=== PATIENT | female | born 1950 | race Caucasian/White ===

== ENCOUNTER 2017-11-23 13:16 | Outpatient (CLI) | payer MEDICARE | END 2017-11-23 13:17 | disposition home or self-care (01) | LOC: BICMRI 13:16 | PROVIDERS: ATTEND Neurological Surgery | DX: M47.22 Other spondylosis with radiculopathy, cervical region (principal); M43.12 Spondylolisthesis, cervical region; Z98.890 Other specified postprocedural states | CPT/HCPCS: 72040; 72141 ==

== ENCOUNTER 2018-12-06 20:43 | Observation (INO) | payer MEDICARE ==
[~2018-12-06 20:43] MED LIST: ISOVUE-370 76%-LOCM 1 ML ONE
[2018-12-06 21:49] LABS: Mean Corpuscular HGB CONC 34.2 g/dL (32.0-36.0); Mean Corpuscular Hemoglobin 29.7 pg (27.0-31.0); Mean Corpuscular Volume 86.8 fL (78.0-98.0); Mean Platelet Volume 6.7 fL (7.4-10.4); Platelet Count 383 thou/uL (130-400); RBC Distribution Width 12.2 % (11.5-14.5); Red Blood Cell (RBC) Count 5.05 mill/uL (4.20-5.40); White Blood Cell (WBC) Count 24.1 thou/uL (4.8-10.8)
[2018-12-06 22:08] LABS: Band 2 % (5-11); Eosinophils 2 % (0-10); Lymphocytes 9 % (21-51); MDiff Complete? YES; Monocytes 1 % (0-10); Neutrophil 86 % (42-75)
[2018-12-06] MEDS ORDERED: Morphine 4 MG/ML VIAL ONE (22:08)
[2018-12-06 22:09] LABS: ALT (SGPT) 11 U/L (8-55); AST (SGOT) 14 U/L (5-34); Albumin 4.2 g/dL (3.4-4.8); Alkaline Phosphatase 92 U/L (40-150); Anion Gap 18 mmol/L (10-20); BUN (Urea Nitrogen) 33 mg/dL (9.8-20.1); Bilirubin, Total 0.9 mg/dL (0.2-1.2); Calc. Creatinine Clearance 0 mL/min (70-130); Calcium 9.6 mg/dL (7.8-10.44); Carbon Dioxide 20 mmol/L (23-31); Chloride 105 mmol/L (98-107); Estimated GFR-MDRD 32; Globulin 2.8 g/dL (2.4-3.5); Glucose 130 mg/dL (80-115); Lipase 27 U/L (8-78); Potassium 3.7 mmol/L (3.5-5.1); Sodium 139 mmol/L (136-145)
--- NOTE | 2018-12-06 22:12 | ULT ---
Right upper quadrant ultrasound. HISTORY: Epigastric pain right upper quadrant pain. Multiple longitudinal and transverse images of the right upper quadrant of the abdomen is obtained us ing multi hertz curvilinear transducer. Real-time, color flow and spectral waveform Doppler analysis used to evaluate the right upper quadrant of the abdomen. The liver is unremarkable. No definite evidence of hepatic parenchymal masses seen. No evidence of in trahepatic biliary dilatation seen. Normal hepatopedal flow seen. The common bile ducts of normal size measuring 2.1 mm. No evidence of gallstone seen. Visualized portion of the pancreas is unremarkable. The right kidneys unremarkable pole to pole measurement measuring 10.8 cm. IMPRESSION: Normal right upper quadrant ultrasound.
[2018-12-06] MEDS ORDERED: Dicyclomine 20 MG TAB ONE (22:15)
--- NOTE | 2018-12-06 22:26 | RAD ---
AP view chest. HISTORY: Nausea and vomiting. AP view chest obtained. The lungs are well aerated. No evidence of active intrathoracic disease seen. No evidence of effusions, pneumonia or pneumothorax seen. IMPRESSION: Unremarkable AP view chest.
[2018-12-06] MEDS ORDERED: Ondansetron PF 4 MG/2 ML Vial ONE (22:36)
--- NOTE | 2018-12-07 00:03 | CT ---
Contrast-enhanced images abdomen and pelvis. HISTORY: Abdominal pain. The lung bases are unremarkable. No evidence of free intraperitoneal air seen. A small amount of free intraperitoneal fluid seen. The liver and spleen are unremarkable. The pancreas is unremarkable. The gallbladder is unremarkable. There is abnormal thickening and dilatation of the duodenum and jejunum. There is equalization of devika e of the small bowel contents in the jejunum. There is also diffuse thickening and enhancement involving the more distal ileal loops. Findings concerning for enteritis. The colon is decompressed but also demonstrates some diffuse mucosal thickening and enhancement. Find ings may represent changes of colitis. Adrenal glands unremarkable. The kidneys demonstrate no evidence of obstruction. IMPRESSION: 1: Small amount of free intraperitoneal fluid. 2: Extensive loops of small bowel with thickening and distention concerning for enteritis. Definite f ocal area of caliber change not visualized
[2018-12-07] MEDS ORDERED: Acetaminophen 325 MG TAB PO PRN (02:11)
[2018-12-07] MEDS ORDERED: Ondansetron ODT 4 MG TAB SL PRN (02:11)
[2018-12-07] MEDS ORDERED: Ondansetron PF 4 MG/2 ML Vial IVP PRN (02:11)
[2018-12-07] MEDS ORDERED: Loperamide HCl 2 MG CAP PO PRN (02:12)
[2018-12-07] MEDS: Lactated Ringer's 1,000 ML IV SCH ×3 (02:37→15:13)
[2018-12-07] MEDS ORDERED: Morphine 2 MG/ML SYRINGE SLOW IVP PRN (02:57)
[2018-12-07] MEDS ORDERED: Morphine 4 MG/ML VIAL SLOW IVP PRN (02:57)
[2018-12-07] MEDS ORDERED: Dicyclomine 10 MG CAP PO PRN (02:57)
[2018-12-07 02:58] VITALS: BMI 30.8
[2018-12-07] MEDS: ADMIXTURE FEE IVPB SCH ×2 (04:30→08:26)
[2018-12-07] MEDS: METRONIDAZOLE IVPB SCH ×3 (04:30→17:25)
[2018-12-07] MEDS ORDERED: Prevnar 13-Val Conj/PF 0.5 ML SYRINGE IM ONE (09:00)
[2018-12-07 09:05] LABS: #Eosinphils 0.2 thou/uL (0.0-0.7); #Lymphocytes 2.5 thou/uL (1.20-3.40); #Monocytes 0.8 thou/uL (0.11-0.59); #Neutrophils 10.7 thou/uL (1.40-6.50); %Basophils 0.3 % (0.0-1.0); %Eosinophils 1.2 % (0.0-10.0); %Lymphocytes 17.5 % (21.0-51.0); %Monocytes 5.9 % (0.0-10.0); %Neutrophils 75.1 % (42.0-75.0); Hemoglobin 12.8 g/dL (12.0-16.0); Mean Corpuscular HGB CONC 34.2 g/dL (32.0-36.0); Mean Corpuscular Hemoglobin 30.1 pg (27.0-31.0); Mean Corpuscular Volume 87.9 fL (78.0-98.0); Mean Platelet Volume 6.6 fL (7.4-10.4); Platelet Count 349 thou/uL (130-400); RBC Distribution Width 12.1 % (11.5-14.5); Red Blood Cell (RBC) Count 4.27 mill/uL (4.20-5.40); White Blood Cell (WBC) Count 14.2 thou/uL (4.8-10.8)
[2018-12-07 09:21] LABS: Anion Gap 14 mmol/L (10-20); BUN (Urea Nitrogen) 29 mg/dL (9.8-20.1); Calc. Creatinine Clearance 55 mL/min (70-130); Calcium 9.2 mg/dL (7.8-10.44); Carbon Dioxide 26 mmol/L (23-31); Chloride 105 mmol/L (98-107); Estimated GFR-MDRD 38; Glucose 118 mg/dL (80-115); Potassium 3.9 mmol/L (3.5-5.1); Sodium 141 mmol/L (136-145)
--- NOTE | 2018-12-07 18:38 | HP ---
CHIEF COMPLAINT: Nausea, vomiting, diarrhea, and abdominal pain. HISTORY OF PRESENT ILLNESS: The patient is a very pleasant 68-year-old female with past medical history consisting of hypertension, hyperlipidemia, who presented to the hospital with complaints of worsening abdominal pain, nausea, vomiting, and profuse diarrhea. The patient states that her symptoms began yesterday afternoon several hours after eating an apple around lunch time. ( Interestingly, she states she had a similar, milder episode after eating an apple last week. Both were bought at the same grocery store.) The patient reports severe, stabbing type abdominal pain, with associated vomiting and diarrhea. She described the diarrhea is very watery and somewhat explosive in nature. She denies any hematemesis or hematochezia. She had no fever. Her symptoms continued throughout the day until the evening and nighttime hours, where the patient felt so weak in the bathroom that she did have a brief syncopal episode. Her was able to arouse her, but because of the severity of her symptoms , they did call EMS. Her blood pressure was low on their arrival, and IV fluids were started. She was taken to the [facility] for further workup and treatment. On arrival to our facility, blood work was significant for a white count of over 24,000 along with a creatinine of 1.6, and carbon dioxide of 20. Her lipase and troponin were negative. All of her liver enzymes were within normal limits. CT scan of the abdomen and pelvis with contrast revealed extensive loops of small bowel with thickening and distention concerning for enteritis and a small amount of intraperitoneal fluid. The patient was started on IV fluid resuscitation with lactated Ringer's along with IV Cipro and metronidazole. At the time of my interview this morning, the patient's abdominal pain is much improved. Her bouts of vomiting and diarrhea are improving as well. The patient denies any recent sick contacts or recent travel. REVIEW OF SYSTEMS: A 12-point review of systems performed and is negative except that stated above. PAST MEDICAL HISTORY: Significant for hypertension, hyperlipidemia, seasonal allergies, history of cellulitis on both lower extremities in the past, seasonal allergies. SURGICAL HISTORY: Left knee orthopedic procedure, C1-C2 fusion, prior back surgery, appendectomy, hysterectomy with bilateral salpingo-oophorectomy. SOCIAL HISTORY: The patient denies alcohol or illicit drug use. She has no past history of smoking. She lives with her , and has 3 grown sons. ALLERGIES: NO KNOWN DRUG ALLERGIES. CODE STATUS: Full code. CURRENT HOME MEDICATIONS: 1. Chlorthalidone 25 mg one tablet daily. 2. Lisinopril 20 mg tabs one tablet daily. 3. Aspirin 81 mg daily. 4. Pravastatin 20 mg once daily. 5. Hydroxyzine 25 mg daily. 6. Omeprazole 40 mg tablet once daily. PHYSICAL EXAMINATION: VITAL SIGNS: Blood pressure 103/70, O2 saturation is 94% on room air, respirations 20, pulse 64, temperature is 97.8. GENERAL: The patient is resting comfortably in bed, in no acute distress. HEENT: Head is atraumatic and normocephalic. Ocular movements intact. NECK: Supple. No lymphadenopathy. No JVD. Trachea is midline. CV: S1 and S2. Regular rate and rhythm. No appreciable murmurs, rubs, or gallops. LUNGS: Regular respiratory rate and pattern. Clear to auscultation bilaterally. ABDOMEN: Hyperactive bowel sounds, soft throughout. No masses. Mildly tender in all quadrants. EXTREMITIES: No edema. +2 DP pulses bilaterally. SKIN: Warm and dry. No rashes or discolorations. NEUROLOGIC: Cranial nerves 2 through 12 are intact. The patient has no focal deficits. LABORATORY DATA: On arrival, white blood cell count was 24,000, now 14,000; hemoglobin 15; hematocrit 43.8; platelet count is 349. Sodium 141, potassium 3.9, chloride 105, carbon dioxide 26, anion gap 14, BUN 14, creatinine 1.6 on arrival , now 1.38. AST, alkaline phosphatase, and lipase all within normal limits. Troponin was negative. ASSESSMENT: 1. Profuse vomiting and diarrhea secondary to enteritis, unclear etiology, although foodborne illness is in the differential diagnosis. Leukocytosis and mild metabolic acidosis secondary to above. Leukocytosis is trending down. 2. Acute kidney injury, creatinine 1.6 on arrival, secondary to dehydration from acute illness. 3. History of hypertension. 4. History of hyperlipidemia. 5. History of recurrent cellulitis in the past, currently nonactive. PLAN: At this time, we will continue aggressive IV fluid resuscitation with lactated Ringer's, and include empiric IV antibiotic coverage with Cipro and Flagyl to account for enteric pathogens. We will start with clear liquid diet and advance her diet as tolerated. Continue supportive care. The patient does appear to be improving. Stool cultures are pending. The care of this patient has been discussed with Dr. Lott, who agrees with the plan as above. If the patient continues to improve and her nausea and vomiting resolves along with her white count, may anticipate discharge tomorrow. Job ID: [id number] MTDD
[2018-12-07] MEDS ORDERED: Pravastatin Sodium 20 MG TAB PO SCH (21:00)
[2018-12-08] MEDS: METRONIDAZOLE IVPB SCH ×2 (00:07→05:29)
[2018-12-08] MEDS: Lactated Ringer's 1,000 ML IV SCH (00:35)
[2018-12-08 07:25] LABS: #Eosinphils 0.3 thou/uL (0.0-0.7); #Lymphocytes 2.3 thou/uL (1.20-3.40); #Monocytes 0.6 thou/uL (0.11-0.59); #Neutrophils 5.8 thou/uL (1.40-6.50); %Basophils 0.5 % (0.0-1.0); %Eosinophils 3.2 % (0.0-10.0); %Lymphocytes 25.9 % (21.0-51.0); %Monocytes 6.7 % (0.0-10.0); %Neutrophils 63.8 % (42.0-75.0); Hemoglobin 11.5 g/dL (12.0-16.0); Mean Corpuscular HGB CONC 34.2 g/dL (32.0-36.0); Mean Corpuscular Hemoglobin 30.2 pg (27.0-31.0); Mean Corpuscular Volume 88.5 fL (78.0-98.0); Mean Platelet Volume 6.8 fL (7.4-10.4); Platelet Count 271 thou/uL (130-400); RBC Distribution Width 12.1 % (11.5-14.5); Red Blood Cell (RBC) Count 3.82 mill/uL (4.20-5.40)
[2018-12-08 07:42] LABS: Anion Gap 13 mmol/L (10-20); BUN (Urea Nitrogen) 16 mg/dL (9.8-20.1); Calc. Creatinine Clearance 66 mL/min (70-130); Calcium 8.8 mg/dL (7.8-10.44); Carbon Dioxide 22 mmol/L (23-31); Chloride 108 mmol/L (98-107); Estimated GFR-MDRD 48; Glucose 94 mg/dL (80-115); Potassium 3.4 mmol/L (3.5-5.1); Sodium 140 mmol/L (136-145)
--- NOTE | 2018-12-08 10:54 | PDOC.EVN ---
Event Note - Event Note Event Note: pt seen and examined and agree with physician assistance assessment and plan. pt was still having loose stools like 3 after she was seen by Domonique Buenrostro. will advance diet and continue abx. pt is hungry and wants to eat. She will need follow up with GI as outpatient. stool studies will be ordered if she has any additional stools.
[2018-12-08] MEDS ORDERED: metroNIDAZOLE 500 MG in Premix Bag 1 BAG IVPB SCH (14:00)
[2018-12-08 14:01] VITALS: BP 101/68; TEMP 97.9
--- NOTE | 2018-12-09 06:37 | DIS ---
DATE OF ADMISSION: 12/07/2018 DATE OF DISCHARGE: 12/08/2018 CHIEF COMPLAINT ON ADMISSION: Nausea, vomiting, diarrhea, and abdominal discomfort. DISCHARGE DIAGNOSES: 1. Profuse vomiting and diarrhea secondary to enteritis, resolved, unclear etiology, although food-borne illnesses in the differential diagnosis. 2. Leukocytosis and mild metabolic acidosis secondary to above, resolved. 3. Acute kidney injury. Creatinine 1.6 on arrival, secondary to dehydration from acute illness, resolved. 4. History of hypertension. 5. History of hyperlipidemia. 6. History of recurrent cellulitis, currently nonactive. BRIEF HOSPITAL COURSE: The patient is a very pleasant 68-year-old female, who presented to the hospital with complaints of worsening nausea, vomiting, abdominal pain, and diarrhea, that began afternoon before her presentation. She had no hematemesis or hematochezia, but profuse watery diarrhea. After suffering with her symptoms all night, the patient was in the bathroom, when she suffered a syncopal event, presumably secondary to dehydration. She was given IV fluid resuscitation by EMS, and brought to our hospital for further workup and treatment. On arrival, her white blood cell count was 24,000 and her creatinine was 1.6. The patient was afebrile, and vital signs were stable. CT of the abdomen and pelvis with contrast revealed extensive loops of small bowel with thickening and distention concerning for enteritis and a small amount of intraperitoneal fluid. The patient was admitted for IV fluid resuscitation and IV antibiotics. The patient's white count and creatinine quickly recovered. On the morning of my interview, she has had no diarrhea or vomiting in just about 24 hours now. She is tolerating a full diet. Her abdomen is just mildly tender diffusely, but she has no other complaints and feels much improved. She has no chest pain, shortness of breath, or tachycardia. DISCHARGE DISPOSITION: Home. DISCHARGE CONDITION: Stable. DISCHARGE MEDICATIONS: The patient will continue her home medication regimen, which includes, 1. Lisinopril 20 mg one tablet p.o. daily. 2. Omeprazole 40 mg tablet one tablet daily. 3. Pravastatin 20 mg tablet one tablet daily. 4. Chlorthalidone 25 mg tablet one tablet daily. 5. Aspirin 81 mg daily. 6. Ammonium lactate lotion one application daily p.r.n. New medications will be, 1. Ciprofloxacin 500 mg tablet p.o. b.i.d. for the next 5 days along with Flagyl 500 mg tablet one tablet p.o. q.8 hours for the next 5 days. DISCHARGE INSTRUCTIONS: I have extensively explained the patient's diagnoses and answered all questions. Regarding her blood pressure, we have not restarted blood pressure medications here in the hospital as her blood pressure has been well controlled with systolic pressures of 100s to 120s. I advised her to continue to monitor her blood pressure at home, and if it rises to the 130 systolic, she may restart her blood pressure medication. She will follow up with her PCP as scheduled and schedule outpatient followup with GI. The care of this patient has been discussed in detail with Dr. Lott, who agrees with discharge as above. Job ID: [id number]
== END 2018-12-08 14:20 | disposition home or self-care (01) ==
LOC: ERS 20:43 → T4-A 12-07 01:44
PROVIDERS: ADMIT Hospitalist; ATTEND Hospitalist
DX: K52.9 Noninfective gastroenteritis and colitis, unspecified (principal); E86.0 Dehydration; N17.9 Acute kidney failure, unspecified; D72.829 Elevated white blood cell count, unspecified; E87.2 Acidosis; I10 Essential (primary) hypertension; E78.5 Hyperlipidemia, unspecified; Z98.890 Other specified postprocedural states; Z79.2 Long term (current) use of antibiotics; Z79.82 Long term (current) use of aspirin; Z79.899 Other long term (current) drug therapy
CPT/HCPCS: 71045; 74177; 76705; 80048 ×2; 80053; 83690; 84484; 85025 ×3; 93005; 96361 ×3; 96365; 96366; 96367; 96372; 96374; 96375; 96376; 97139; 99285; G0378 ×2; 36415; 90471; 90670; G0009; J0500; J0744; J2270; J2405; Q9966

== ENCOUNTER 2020-04-24 09:23 | Outpatient (CLI) | payer MEDICARE, OTHER ==
--- NOTE | 2020-04-24 10:48 | CT ---
Exam: CT cervical spine without contrast HISTORY: Pain. Previous fusion. COMPARISON: None FINDINGS: No craniocervical dissociation. Appropriate alignment of the lateral masses of C1 and C2. Intact odon toid process Appropriate alignment of the facets. There are bilateral posterior element screws at C1 and C2. No perihardware lucency. There is fusion o f the right C1-C2 articulation with respect to the lateral masses. There is still patency of the articulation of the left C1 and C2 articulation with respect to the lateral masses. Soft tissue neck structures: No mass, lymphadenopathy or hematoma. No prevertebral soft tissue swelli ng. Upper mediastinum and lung apices: Unremarkable Central spinal canal: Limited evaluation by the lack of contrast. C2-C3: No high-grade central canal stenosis. Mild bilateral neural foraminal narrowing. There is righ t facet hypertrophy. C3-C4: Broad-based disc osteophyte complex with mild central canal stenosis. Moderate right and sever e left neural foraminal narrowing C4-C5: 1.9 mm of anterolisthesis. Broad-based disc osteophyte complex with mild central canal stenosi s. Moderate bilateral neural foraminal narrowing. There is bilateral facet hypertrophy. C5-C6: Severe loss of disc space height. Moderate central canal stenosis secondary to broad-based dis c osteophyte complex. Moderate to severe right and severe left neural foraminal narrowing. C6-C7: Broad-based disc osteophyte complex. Moderate central canal stenosis. Severe bilateral neural foraminal narrowing. C7-T1: 2.2 mm of anterolisthesis. No high-grade central canal stenosis. Mild bilateral neural foramin al narrowing. Vertebral bodies: Cervical spine vertebral body height is maintained. No fracture. IMPRESSION: 1. No fracture. 2. Multilevel degenerative changes of the cervical spine as described above. 3. Cervical fusion as detailed above. No perihardware lucency. Transcribed Date/Time: 04/24/2020 10:56 AM
== END 2020-04-24 09:24 | disposition home or self-care (01) ==
LOC: BICCT 09:23
PROVIDERS: ATTEND Neurological Surgery
DX: M54.2 Cervicalgia (principal); M50.30 Other cervical disc degeneration, unspecified cervical region; Z98.1 Arthrodesis status
CPT/HCPCS: 72125

== ENCOUNTER 2020-07-30 09:01 | Outpatient (CLI) | payer MEDICARE, OTHER ==
--- NOTE | 2020-07-30 10:28 | RAD ---
EXAM: XR Cerv Sp Ap Lat STANDARD PROVIDED CLINICAL HISTORY: Cervical pain. History of prior postoperative changes. COMPARISON: 02/21/2020 FINDINGS: There've been interval postoperative changes compared to the prior exam. Again noted is evidence of p osterior fusion of the C1 and C2 vertebral bodies with bipedicular screws and posterior rods again transfixing this level. However there is now been interval postoperative changes related to posterior fusion of C3 to the T1 level with bipedicular screws in the C3-C4, C5, C6, and T1 vertebral bodies with posterior rods present. No hardware complication is identified. Laminectomy defects are seen at levels of posterior fusion. Trace anterolisthesis of C4 on C5 is present, but this has improved when compared to the prior study. Degenerative changes are again seen in the cervical spine greatest at the C5-6 and C6-7 levels with narrowing of the intervertebral disc spaces and endplate degenerative changes as well as anterio r osteophyte formation. No fracture is identified. Prevertebral soft tissues have a normal appearance. IMPRESSION: Postoperative changes lumbar spine with stable posterior fusion at the C1-2 level and interval postop erative changes related to posterior fusion of C3 to the T1 level. No hardware complication is seen. Degenerative changes are seen in the cervical spine.
== END 2020-07-30 09:02 | disposition home or self-care (01) ==
LOC: RAD 09:01
DX: M54.2 Cervicalgia (principal); M47.812 Spondylosis without myelopathy or radiculopathy, cervical region; Z98.1 Arthrodesis status
CPT/HCPCS: 72040

== ENCOUNTER 2020-09-30 09:48 | Outpatient (CLI) | payer MEDICARE, OTHER | END 2020-09-30 09:49 | disposition home or self-care (01) | LOC: RAD 09:48 | PROVIDERS: ATTEND Neurological Surgery | DX: M54.2 Cervicalgia (principal); M47.812 Spondylosis without myelopathy or radiculopathy, cervical region; Z98.890 Other specified postprocedural states | CPT/HCPCS: 72040 ==

== ENCOUNTER 2020-12-18 14:43 | Outpatient (CLI) | payer MEDICARE, OTHER | END 2020-12-18 14:44 | disposition home or self-care (01) | LOC: RAD 14:43 | PROVIDERS: ATTEND Neurological Surgery | DX: M54.2 Cervicalgia (principal) | CPT/HCPCS: 72040 ==